=== PATIENT | male | born 1960 | race Two or more races ===

== ENCOUNTER 2016-03-20 11:37 | Day surgery (SDC) | payer OTHER ==
[~2016-03-20] VITALS: Ht 170.2 cm; Wt 89.9 kg
[2016-03-20 13:00] VITALS: Ht 170.2 cm; Wt 89.9 kg
[2016-03-20 13:26] VITALS: BP 134/87; PULSE 68; RESP 16
[2016-03-20] MEDS ORDERED: PROPOFOL 40 ML ONE (14:18)
[2016-03-20] MEDS ORDERED: LIDOCAINE 2% (SDV) 5 ML INJ ONE (14:18)
[2016-03-20] MEDS ORDERED: PROPOFOL 20 ML ONE (14:23)
[2016-03-20 15:13] VITALS: BP 119/85; RESP 20
--- NOTE | 2016-03-21 09:19 | GILP ---
DATE OF PROCEDURE: DATE: ____ NAME OF PROCEDURE: Colonoscopy with polyp ablation. SURGEON: Morena Hawk MD. PREOPERATIVE DIAGNOSIS(ES) ____ POSTOPERATIVE DIAGNOSIS(ES) ____ HISTORY AND INDICATIONS: The patient is being evaluated for colorectal cancer screening. PREMEDICATION: Monitored anesthesia care by anesthesiologist. INSTRUMENT USED: Olympus colonoscope. PREPARATION: Adequate. TECHNIQUE: After informed consent, with the patient/relatives understanding the procedure, its indic ations potential risks and complications, including but not limited to: allergic reaction, bleeding, perforation, infection, missed lesions and after all pertinent questions were answered to the patie nt's satisfaction, the patient/relatives signed the witnessed informed consent. Following this, premedication was administered slowly IV push by under careful cardiovascular and re spiratory monitoring with pulse oximetry, automatic blood pressure and front desk monitor. Once the sedativ e effect was achieved, the patient was placed in the left lateral decubitus position, digital rectal examination was performed. The colonoscope was then introduced and advanced under visual control th roughout all segments of the colon including: the rectum, sigmoid, descending colon, splenic flexure , transverse colon, hepatic flexure, ascending colon and finally reaching the cecum which was clearl y identified by transillumination, finger indentation and the ileocecal valve. Careful examination o f the mucosa of the lower gastrointestinal tract both on insertion as well as withdrawal of the inst rument disclosed the following findings: Rectal Examination: No evidence of perirectal disease, no masses. Colonic Mucosa: Colonic Mucosa: The colonic mucosa is unremarkable with exception of a 4 mm sessile polyp in the mid ascending colon. The polyp was completely ablated with biopsy forceps. The remai nder of colonic mucosa was unremarkable. The ileocecal valve was clearly identified and appears unr emarkable. The instrument was withdrawn reexamining the mucosa in detail. No additional abnormalit ies are noted with exception of moderate sized internal hemorrhoids. The patient tolerated the procedure well and was transferred out of the [facility] awake and in good condition to continue recovery under observation. IMPRESSION: 1. A 4 mm polyp in the mid ascending colon ablated. 2. Moderate sized internal hemorrhoids. PLAN: 1. The patient will be followed up as an outpatient. 2. Hemoccult stool testing is recommended. 3. Surveillance colonoscopy in 5 years is recommended. Dictated By: MORENA HAWK MS/SOURAV Conf#: [id number] DID#: [id number]
== END 2016-03-20 15:54 | disposition home or self-care (01) ==
LOC: GIL 11:37
PROVIDERS: ATTEND Internal Medicine Gastroenterology
DX: Z12.11 Encounter for screening for malignant neoplasm of colon (principal); D12.2 Benign neoplasm of ascending colon; K64.4 Residual hemorrhoidal skin tags
CPT/HCPCS: 45380; 88305; Z7610